=== PATIENT | female | born 1990 | race Asian ===

== ENCOUNTER 2017-05-08 13:03 | Inpatient (IN) | payer MEDICARE ==
[~2017-05-08] VITALS: Ht 162.6 cm; Wt 76.2 kg
[2017-05-08] MEDS ORDERED: PREN-380 PO (13:33)
[2017-05-08] MEDS ORDERED: FERR325E14 PO (13:33)
[2017-05-08] MEDS ORDERED: METHYLERGONOVINE 0.2 MG/ML AMP IM PRN (13:50)
[2017-05-08] MEDS ORDERED: PROMETHAZINE 25 MG/ML VIAL IVP PRN (13:50)
[2017-05-08] MEDS ORDERED: NALBUPHINE HYDROCHLORIDE 10 MG/ML VIAL IVP PRN (13:50)
[2017-05-08] MEDS ORDERED: CARBOPROST 250 MCG/ML AMP IM PRN (13:50)
[2017-05-08] MEDS ORDERED: OXYTOCIN 10 UNITS/ML VIAL IM SCH (13:50)
[2017-05-08 14:32] VITALS: BP 112/79
[2017-05-08 15:01] LABS: BASOPHILS # (AUTO) 0.1 K/uL (0.00-0.22); BASOPHILS % (AUTO) 1.3 % (0.0-2.0); EOSINOPHILS # (AUTO) 0.1 K/uL (0-0.4); EOSINOPHILS % (AUTO) 0.8 % (0.0-4.0); HEMATOCRIT 38.5 % (36-48); HEMOGLOBIN 13.2 g/dL (12.0-16.0); LYMPHOCYTES # (AUTO) 1.1 K/uL (2.5-16.5); LYMPHOCYTES % (AUTO) 14.9 % (20.5-51.1); MEAN CORPUSCULAR HEMOGLOBIN 35 pg (27-31); MEAN CORPUSCULAR HGB CONC 34 g/dL (33-37); MEAN CORPUSCULAR VOLUME 103 fL (80-94); MONOCYTES # (AUTO) 0.9 K/uL (0.8-1.0); MONOCYTES % (AUTO) 12.1 % (1.7-9.3); NEUTROPHILS # (AUTO) 5.5 K/uL (1.8-7.7); NEUTROPHILS % (AUTO) 70.9 % (42.2-75.2); PLATELET COUNT (AUTO) 244 K/uL (140-450); RED BLOOD CELL COUNT(AUTO) 3.75 MIL/uL (4.20-5.40); RED CELL DISTRIBUTION WIDTH 11.9 % (11.6-13.7); WHITE BLOOD COUNT (AUTO) 7.7 K/uL (4.8-10.8)
[2017-05-08 15:16] LABS: ANION GAP 13.4 (8-16); CARBON DIOXIDE 23.4 mmol/L (21-32); CREATININE 0.6 mg/dL (0.6-1.3); POTASSIUM 3.8 mmol/L (3.5-5.1)
[2017-05-08 15:21] LABS: ALBUMIN 2.9 g/dL (3.4-5.0); TOTAL BILIRUBIN 0.3 mg/dL (0.0-1.0)
[2017-05-08 15:28] LABS: BILIRUBIN,URINE NEGATIVE (NEGATIVE); BLOOD, URINE 1+ (NEGATIVE); COLOR,URINE YELLOW (YELLOW); LEUKOCYTE ESTERASE ,URINE 2+ (NEGATIVE); NITRITE, URINE NEGATIVE (NEGATIVE); PH,URINE 6.5 (5.0-9.0); UGLUCOSE NEGATIVE (NEGATIVE)
[2017-05-08] MEDS ORDERED: AMPICILLIN 2,000 MG VIAL ONE (15:33)
[2017-05-08 15:37] LABS: APPEARANCE,URINE HAZY (CLEAR)
--- NOTE | 2017-05-08 15:39 | NUR ---
PATIENT HAS BEEN SCREENED AND CATEGORIZED LOW NUTRITION RISK. PATIENT WILL BE SEEN WITHIN 7 DAYS OF ADMISSION. 05/14/[address]
[2017-05-08 15:47] LABS: RBC,URINE 3-10 (FEW) /HPF (0-5); WBC,URINE 60-80 /HPF (0-5)
[2017-05-08] MEDS ORDERED: MISOPROSTOL 25 MCG TAB VG SCH (16:00)
[2017-05-08] MEDS ORDERED: MISOPROSTOL 25 MCG TAB ONE (16:21)
[2017-05-08] MEDS ORDERED: AMPICILLIN 1,000 MG VIAL ONE ×2 (19:51→23:54)
[2017-05-08] MEDS: AMPICILLIN 1,000 MG in NACL 0.9% MINI-BAG PLUS 50 ML IV SCH ×2 (19:54→23:57)
[2017-05-08] MEDS ORDERED: OXYTOCIN 20 UNITS/LR PREMIX 1,000 ML IV ONE (21:53)
[2017-05-08] MEDS ORDERED: OXYTOCIN 20 UNITS in LACTATED RINGERS 1,000 ML IV SCH (22:10)
[2017-05-08] MEDS: LACTATED RINGERS 1,000 ML IV SCH (22:18)
[2017-05-09] MEDS ORDERED: AMPICILLIN 1,000 MG VIAL ONE ×3 (03:58→13:36)
[2017-05-09] MEDS: AMPICILLIN 1,000 MG in NACL 0.9% MINI-BAG PLUS 50 ML IV SCH ×3 (04:02→13:43)
[2017-05-09] MEDS: LACTATED RINGERS 1,000 ML IV SCH ×2 (06:48→09:29)
[2017-05-09] MEDS ORDERED: BUPIVACAINE 0.125%/NS PREMIX 250 ML ONE (07:33)
[2017-05-09] MEDS ORDERED: BUPIVACAINE 0.125%/NS PREMIX 250 ML EPI SCH (07:50)
[2017-05-09] MEDS ORDERED: AMPICILLIN 2,000 MG in NACL 0.9% MINI-BAG PLUS 100 ML IV SCH (13:58)
[2017-05-09] MEDS ORDERED: OXYTOCIN 10 UNITS/ML VIAL ONE (17:04)
[2017-05-09] MEDS ORDERED: oxyCODONE/APAP 5/325 MG 1 TAB TAB ONE (21:16)
[2017-05-09] MEDS ORDERED: IBUP-1801 PO (21:18)
[2017-05-10] MEDS ORDERED: BENZOCAINE/MENTHOL 20%-0.5% 60 GM CAN TP PRN (00:55)
[2017-05-10] MEDS ORDERED: SODIUM PHOSPHATE 118 ML ENEM RC PRN (00:55)
[2017-05-10] MEDS ORDERED: METHYLERGONOVINE 0.2 MG/ML AMP IM PRN (00:55)
[2017-05-10] MEDS ORDERED: TEMAZEPAM 15 MG CAP PO PRN (00:55)
[2017-05-10] MEDS ORDERED: MEASLES, MUMPS, AND RUBELLA 1 VIAL SQVAC PRN (00:55)
[2017-05-10] MEDS ORDERED: HYDROcodone/APAP 5/325 MG 1 TAB TAB PO PRN (00:55)
[2017-05-10] MEDS: oxyCODONE/APAP 5/325 MG 1 TAB TAB PO PRN ×2 (08:27→21:19)
[2017-05-10] MEDS ORDERED: DOCUSATE SOD/SENNA 50/8.6 MG 1 TAB PO SCH (21:00)
[2017-05-11 06:41] LABS: HEMATOCRIT 33.3 % (36-48); HEMOGLOBIN 11.4 g/dL (12.0-16.0)
== END 2017-05-11 11:05 | disposition home or self-care (01) | DRG 560 ==
LOC: MLD 13:03 → MFCC 05-09 21:45
PROVIDERS: ADMIT Obstetrics & Gynecology; ATTEND Obstetrics & Gynecology
PROC: 10D07Z6 Extraction of Products of Conception, Vacuum, Via Natural or Artificial Opening (ICD-10-PCS; principal; 2017-05-09)
PROC: 10907ZC Drainage of Amniotic Fluid, Therapeutic from Products of Conception, Via Natural or Artificial Opening (ICD-10-PCS; 2017-05-09)
PROC: 0KQM0ZZ Repair Perineum Muscle, Open Approach (ICD-10-PCS; 2017-05-09)
PROC: 00HU33Z Insertion of Infusion Device into Spinal Canal, Percutaneous Approach (ICD-10-PCS; 2017-05-09)
PROC: 3E0R3BZ Introduction of Anesthetic Agent into Spinal Canal, Percutaneous Approach (ICD-10-PCS; 2017-05-09)
PROC: 3E0234Z Introduction of Serum, Toxoid and Vaccine into Muscle, Percutaneous Approach (ICD-10-PCS; 2017-05-10)
DX: O99.824 Streptococcus B carrier state complicating childbirth (principal); O69.1XX0 Labor and delivery complicated by cord around neck, with compression, not applicable or unspecified; O70.1 Second degree perineal laceration during delivery; Z37.0 Single live birth; Z3A.39 39 weeks gestation of pregnancy; Z23 Encounter for immunization; Z83.3 Family history of diabetes mellitus
CPT/HCPCS: 36415; 51702; 59200; 80053; 81001; 85018; 85025; 86592; 86886; 86900; 86901; 87086; 90715; J0290; J2590; J3490; J7120